=== PATIENT | female | born 1965 ===

== ENCOUNTER 2019-09-23 09:50 | Emergency (ER) | payer SELFPAY ==
[~2019-09-23] VITALS: Ht 152.4 cm; Wt 113.4 kg
[2019-09-23 10:30] LABS: BASOPHILS # (AUTO) 0.1 10^3/uL (0.0-0.1); BASOPHILS % (AUTO) 1 % (0-10); EOSINOPHILS # (AUTO) 0.2 10^3/uL (0.0-0.3); EOSINOPHILS % (AUTO) 3 % (0-10); HEMATOCRIT 41 % (35-52); HEMOGLOBIN 13.3 G/DL (11.5-16.0); LYMPHOCYTES # (AUTO) 2.3 X 10^3 (1.0-4.0); LYMPHOCYTES % (AUTO) 30 % (12-44); MEAN CORPUSCULAR HEMOGLOBIN 28 PG (25-34); MEAN CORPUSCULAR HGB CONC 33 G/DL (32-36); MEAN CORPUSCULAR VOLUME 85 FL (80-99); MEAN PLATELET VOLUME 9.3 FL (7.4-10.4); MONOCYTES # (AUTO) 0.8 X 10^3 (0.0-1.0); MONOCYTES % (AUTO) 10 % (0-12); NEUTROPHILS # (AUTO) 4.4 X 10^3 (1.8-7.8); NEUTROPHILS % (AUTO) 57 % (42-75); PLATELET COUNT 348 10^3/uL (130-400); RED CELL DISTRIBUTION WIDTH 15.3 % (10.0-14.5); WHITE BLOOD COUNT 7.8 10^3/uL (4.3-11.0)
--- NOTE | 2019-09-23 10:30 | ED Integumentary General ---
General Stated Complaint: R LEG SWELLING Source: patient Exam Limitations: no limitations History of Present Illness Date Seen by Provider: Sep 23, 2019 Time Seen by Provider: 10:22 Initial Comments ER with reports right leg itching redness and swelling for about two weeks. It started as an itch that became red a few days ago. She saw [facility] at the onset of t his, given antibiotic without much improvement. Timing/Duration: just prior to arrival Severity: moderate Location: extremities Possible Cause: no cause identified Associated Symptoms: denies symptoms, other (itching) Allergies and Home Medications Patient Home Medication List Home Medication List Reviewed: Yes Review of Systems Review of Systems Constitutional: see HPI EENTM: see HPI Respiratory: no symptoms reported Cardiovascular: no symptoms reported Genitourinary: no symptoms reported Musculoskeletal: no symptoms reported Skin: no symptoms reported Psychiatric/Neurological: No Symptoms Reported Endocrine: No Symptoms Reported Hematologic/Lymphatic: No Symptoms Reported Past [id number] Hx Patient Social History Recent Foreign Travel: No Contact w/Someone Who Travel: No Physical Exam Vital Signs Capillary Refill : General Appearance: WD/WN, no apparent distress Neck: non-tender, full range of motion Respiratory: no respiratory distress, no accessory muscle use Gastrointestinal: normal bowel sounds, non tender Neurologic/Psychiatric: alert, normal mood/affect, oriented x 3 Skin: other (residual demarcated erythematous scaly rash to the anterior right lower leg. There are some time sized areas of skin discoloration and scaliness of the left leg and over the anterior left knee. She also has some spots to the dorsal left arm that appear to be older lesions, she states they are have all been itchy at one time or another. Has the appearance of a psoriasis. The one on the right lower leg appears to be secondarily infected) Skin Problem Location: upper extremities, lower extremities Progress/Results/Core Measures Results/Orders My Orders Orders - ALONZO LOUIS APRN Cbc With Automated Diff (09/23/19 10:20) Comprehensive Metabolic Panel (09/23/19 10:20) Hemoglobin A1c (09/23/19 10:21) Departure Impression Primary Impression: Eczema Additional Impression: Secondary infection of skin Disposition: HOME, SELF-CARE Condition: Stable Departure-Patient Inst. Patient Instructions: Eczema (Atopic Dermatitis), Wound Infection Add. Discharge Instructions: 1. Antibiotics as directed. Apply the steroid cream to the right lower leg. Follow-up with [facility] / [facility] next week. Scripts Betamethasone Dipropionate (Betamethasone Dipropionate) 15 Gm Cream..g. 0 TP BID, #2 TUBE Prov: ALONZO LOUIS APRN 09/23/19 Doxycycline Hyclate (Doxycycline Hyclate) 100 Mg Tablet 100 MG PO BID, #20 TAB 0 Refills Prov: ALONZO LOUIS APRN 09/23/19 ALONZO LOUIS APRN Sep 23, 2019 10:30
[2019-09-23] MEDS ORDERED: BETA15CR4 TP (10:31)
[2019-09-23] MEDS ORDERED: DOXY100T2 PO (10:31)
[2019-09-23 10:41] LABS: CHLORIDE 105 MMOL/L (98-107); POTASSIUM 4.1 MMOL/L (3.6-5.0); SODIUM 138 MMOL/L (135-145)
[2019-09-23 10:43] LABS: CALCIUM 9.2 MG/DL (8.5-10.1)
[2019-09-23 10:44] LABS: GLUCOSE 102 MG/DL (70-105); TOTAL PROTEIN 7.9 GM/DL (6.4-8.2)
[2019-09-23 10:45] LABS: BILIRUBIN,TOTAL 0.4 MG/DL (0.1-1.0); CARBON DIOXIDE 21 MMOL/L (21-32)
[2019-09-23 10:47] LABS: ALKALINE PHOSPHATASE 100 U/L (40-136); CREATININE SERUM 0.56 MG/DL (0.60-1.30); GFR ESTIMATED > 60
[2019-09-23 10:48] LABS: BUN/CREATININE RATIO 20
[2019-09-23 10:50] LABS: ALANINE AMINOTRANSFERASE 24 U/L (0-55)
[2019-09-23 11:16] VITALS: BP 137/65
== END 2019-09-23 11:16 | disposition home or self-care (01) ==
LOC: ER 09:52
DX: L30.9 Dermatitis, unspecified (principal); L08.9 Local infection of the skin and subcutaneous tissue, unspecified
CPT/HCPCS: 36415; 80053; 83036; 85025